=== PATIENT | male | born 1955 | race Caucasian/White ===

== ENCOUNTER → 2017-05-12 | Outpatient (CLI) | payer OTHER ==
--- NOTE | 2017-05-12 09:26 | RAD ---
LEFT FOOT HISTORY: PAIN IN LEFT FOOT COMPARISON: None FINDINGS: Three views of foot demonstrate anatomic bony alignment. No fracture nor dislocation nor inflammatory bony erosion is identified. Mild hallux valgus deformity. Joint spaces are maintained. No soft tissue abnormality is seen. IMPRESSION: No bony injury identified in left foot. Mild hallux valgus deformity Electronically signed by: Abdoul Quinn MD 05/12/2017 9:25 AM [facility]
--- NOTE | 2017-05-12 09:30 | RAD ---
EXAM DESCRIPTION: Foot,Right 3 Views CLINICAL HISTORY: 62 years, Male, PAIN IN RIGHT FOOT M79.672 COMPARISON: No old studies of the right foot TECHNIQUE: AP, lateral, and oblique views of the right foot FINDINGS: Mild metatarsus premise varus with hallux valgus. Mild narrowing of the joints of the toes. Spur is prominent at the base of the fifth metatarsal and there is mild spurring at the dorsal neck of the talus and proximal navicular. Oblique view shows mild spurring of the anterior distal tibia with an associated accessory ossicle. Otherwise no bone, joint, or soft tissue abnormality observed. Lateral view shows intact talus and calcaneus. There is no radiopaque foreign body. IMPRESSION: Degenerative changes as described. Electronically signed by: Eduardo Quiles MD 05/12/2017 9:29 AM [facility]
== END ==
LOC: RAD 08:38
PROVIDERS: ATTEND Orthopaedic Surgery
DX: M79.671 Pain in right foot (principal); M79.672 Pain in left foot